=== PATIENT | male | born 1995 | race Caucasian/White ===

== ENCOUNTER 2019-12-11 13:35 | Outpatient (RCR) | payer OTHER ==
[~2019-12-11 13:35] MED LIST: NORCO 325 MG-51 TAB PO
== END 2020-03-08 | disposition home or self-care (01) ==
LOC: WSOH
DX: S43.004D Unspecified dislocation of right shoulder joint, subsequent encounter (principal); F17.210 Nicotine dependence, cigarettes, uncomplicated; G43.909 Migraine, unspecified, not intractable, without status migrainosus; G93.81 Temporal sclerosis; L98.499 Non-pressure chronic ulcer of skin of other sites with unspecified severity; Y99.0 Civilian activity done for income or pay

== ENCOUNTER 2020-11-18 02:01 | Emergency (ER) | payer SELFPAY ==
[~2020-11-18] VITALS: Ht 170.2 cm; Wt 66.4 kg
[2020-11-18] MEDS ORDERED: NORCO 325 MG-51 TAB PO (04:00)
[2020-11-18] MEDS ORDERED: MOTRIN 800800 MG/TAB PO (04:00)
[2020-11-18 04:06] VITALS: BP 110/75; PULSE 89; TEMP 97.3
== END 2020-11-18 04:06 | disposition home or self-care (01) ==
LOC: COL.ER 02:01
DX: S09.90XA Unspecified injury of head, initial encounter (principal); M25.551 Pain in right hip; F17.210 Nicotine dependence, cigarettes, uncomplicated; Y04.2XXA Assault by strike against or bumped into by another person, initial encounter

== ENCOUNTER 2021-11-07 22:51 | Emergency (ER) | payer SELFPAY ==
[~2021-11-07] VITALS: Ht 172.7 cm; Wt 77.3 kg
[~2021-11-07 22:51] MED LIST changes: +MOTRIN 800800 MG/TAB PO
[2021-11-07 23:03] VITALS: TEMP 98.2
[2021-11-08 01:15] VITALS: BP 124/78; PULSE 76
== END 2021-11-08 01:15 | disposition home or self-care (01) ==
LOC: COL.ER 22:51
DX: K20.90 Esophagitis, unspecified without bleeding (principal); F17.290 Nicotine dependence, other tobacco product, uncomplicated; Z28.310 Unvaccinated for COVID-19

== ENCOUNTER 2021-12-01 18:59 | Emergency (ER) | payer SELFPAY ==
[~2021-12-01] VITALS: Ht 172.7 cm; Wt 75.9 kg
[2021-12-01 19:02] VITALS: TEMP 97.4
[2021-12-01 19:30] VITALS: BP 113/76; PULSE 83
== END 2021-12-01 19:30 | disposition home or self-care (01) ==
LOC: COL.ER 18:59
DX: H57.89 Other specified disorders of eye and adnexa (principal); F17.290 Nicotine dependence, other tobacco product, uncomplicated; Z28.310 Unvaccinated for COVID-19

== ENCOUNTER 2022-02-03 15:07 | Emergency (ER) | payer SELFPAY ==
[~2022-02-03] VITALS: Ht 172.7 cm; Wt 74.1 kg
[2022-02-03 15:23] VITALS: BP 142/90; TEMP 98.7
[2022-02-03] MEDS ORDERED: CEPHALEXIN500 M1 (16:18)
[2022-02-03] MEDS ORDERED: TOBRADEX EYE DRO5 ML OP (16:18)
[2022-02-03] MEDS ORDERED: CEPHALEXIN500 M1 PO (17:09)
[2022-02-03 17:21] VITALS: PULSE 79
== END 2022-02-03 17:22 | disposition home or self-care (01) ==
LOC: COL.ER 15:07
DX: H57.11 Ocular pain, right eye (principal); F17.290 Nicotine dependence, other tobacco product, uncomplicated; Z98.890 Other specified postprocedural states; Z28.310 Unvaccinated for COVID-19

== ENCOUNTER 2022-02-05 14:33 | Emergency (ER) | payer SELFPAY ==
[~2022-02-05] VITALS: Ht 172.7 cm; Wt 74.1 kg
[~2022-02-05 14:33] MED LIST changes: +CEPHALEXIN500 M1; +CEPHALEXIN500 M1 PO; +TOBRADEX EYE DRO5 ML OP
[2022-02-05 14:36] VITALS: TEMP 98.4
[2022-02-05 16:22] VITALS: BP 125/66; PULSE 92
== END 2022-02-05 16:22 | disposition short-term general hospital (02) ==
LOC: COL.ER 14:33
DX: H54.61 Unqualified visual loss, right eye, normal vision left eye (principal); F17.210 Nicotine dependence, cigarettes, uncomplicated; F17.290 Nicotine dependence, other tobacco product, uncomplicated; Z28.310 Unvaccinated for COVID-19; Z98.890 Other specified postprocedural states

== ENCOUNTER 2022-08-07 19:54 | Emergency (ER) | payer SELFPAY ==
[~2022-08-07] VITALS: Ht 175.3 cm; Wt 72.7 kg
[2022-08-07 20:00] VITALS: TEMP 98.1
[2022-08-07 20:26] VITALS: BP 110/70; PULSE 81
== END 2022-08-07 20:27 | disposition home or self-care (01) ==
LOC: COL.ER 19:54
DX: H04.551 Acquired stenosis of right nasolacrimal duct (principal); Z28.310 Unvaccinated for COVID-19